=== PATIENT | female | born 2000 | race Caucasian/White ===

== ENCOUNTER 2018-08-09 17:13 | Emergency (ER) | payer MEDICAID ==
[~2018-08-09] VITALS: Ht 160 cm; Wt 46.6 kg
[2018-08-09 18:19] LABS: HCG UR SG 1.013 (1.003-1.030); MICROSCOPIC AUTO
[2018-08-09 18:20] LABS: CULTURE INDICATED? YES
[2018-08-09 18:23] LABS: BASOPHILS # (AUTO) 0.03 x10^3/uL (0-0.3); BASOPHILS % (AUTO) 0 % (0-1); EOSINOPHILS # (AUTO) 0.24 x10^3/uL (0-0.8); EOSINOPHILS % (AUTO) 3 % (1-7); LYMPHOCYTES # (AUTO) 2.56 x10^3/uL (1-6.1); LYMPHOCYTES % (AUTO) 33 % (22-44); MD NO; MEAN CORPUSCULAR HEMOGLOBIN 30.8 pg (27.0-34.8); MEAN CORPUSCULAR HGB CONC 33.9 g/dL (32.4-35.8); MEAN CORPUSCULAR VOLUME 90.7 fL (80-100); MEAN PLATELET VOLUME 7.7 fL (7.4-10.4); MONOCYTES # (AUTO) 0.71 x10^3/uL (0-1.4); MONOCYTES % (AUTO) 9 % (2-9); NEUTROPHILS # (AUTO) 4.23 x10^3/uL (1.8-8.0); NEUTROPHILS % (AUTO) 54 % (42-75); PLATELET COUNT 256 x10^3/uL (130-400); RED BLOOD COUNT 4.46 x10^6/uL (3.82-5.3); RED CELL DISTRIBUTION WIDTH 13.5 % (9.6-15.2)
[2018-08-09 18:35] LABS: ALANINE AMINOTRANSFERASE 17 U/L (12-78); ALBUMIN 3.8 g/dL (3.4-5.0); ANION GAP 8 mmol/L (5-15); CALCIUM 8.7 mg/dL (8.5-10.1); CHLORIDE 110 mmol/L (98-107)
[2018-08-09 18:37] LABS: CREATININE 0.65 mg/dL (0.55-1.02)
[2018-08-09 18:38] LABS: ALKALINE PHOSPHATASE 86 U/L (45-117); BILIRUBIN,TOTAL 0.2 mg/dL (0.2-1.0); TOTAL PROTEIN 7.7 g/dL (6.4-8.2)
[2018-08-09 19:23] VITALS: BP 90/60
[2018-08-09 19:26] LABS: CLUE CELLS NONE SEEN (NONE SEEN); WET PREP WBCS MODERATE (FEW)
[2018-08-09] MEDS ORDERED: CEFTRIAXONE 250 MG ONE (19:39)
[2018-08-09] MEDS ORDERED: CEFTRIAXONE 250 MG IM ONE (20:00)
== END 2018-08-09 19:59 | disposition home or self-care (01) ==
LOC: ED 19:53
DX: A56.11 Chlamydial female pelvic inflammatory disease (principal)
CPT/HCPCS: 36415; 76830; 80053; 81001; 81025; 85025; 87086; 87210; 87491; 87591; 87808; 96372; 99285; J0696